=== PATIENT | female | born 1980 | race Native Hawaiian/Other Pacific Islander ===

== ENCOUNTER 2017-07-01 13:38 | Outpatient (CLI) | payer OTHER | END 2017-07-01 14:40 | disposition home or self-care (01) | LOC: MAMMO 13:38 | DX: Z12.31 Encounter for screening mammogram for malignant neoplasm of breast (principal) | CPT/HCPCS: G0202-TC ==

== ENCOUNTER 2018-01-16 13:28 | Emergency (ER) | payer OTHER ==
[~2018-01-16] VITALS: Ht 160 cm; Wt 71.7 kg
[2018-01-16 14:18] LABS: PLATELET COUNT 389 K/uL (152-353)
[2018-01-16 16:50] LABS: POTASSIUM 3.4 mmol/L (3.6-5.2)
[2018-01-16 17:00] VITALS: TEMP 97.8
[2018-01-16 17:50] VITALS: BP 118/68
== END 2018-01-16 17:54 | disposition home or self-care (01) ==
LOC: ED 13:28
PROVIDERS: Emergency Medicine; Specialist
DX: Z72.820 Sleep deprivation (principal); R00.2 Palpitations
CPT/HCPCS: 36415; 80048; 80307; 81000; 82550; 84439; 84443; 84484; 85027; 93005; 96374; 99284

== ENCOUNTER 2018-11-02 13:13 | Outpatient (CLI) | payer OTHER | END 2018-11-02 19:13 | disposition home or self-care (01) | LOC: RAD 13:13 | DX: M25.541 Pain in joints of right hand (principal) ==

== ENCOUNTER 2018-12-08 11:30 | Outpatient (CLI) | payer OTHER | END 2018-12-08 21:09 | disposition home or self-care (01) | LOC: MAMMO 11:30 | DX: Z12.31 Encounter for screening mammogram for malignant neoplasm of breast (principal) ==

== ENCOUNTER 2020-08-18 14:06 | Outpatient (CLI) | payer OTHER | END 2020-08-19 03:41 | disposition home or self-care (01) | LOC: MAMMO 14:06 | DX: Z12.31 Encounter for screening mammogram for malignant neoplasm of breast (principal) ==

== ENCOUNTER 2020-10-11 13:40 | Outpatient (CLI) | payer OTHER | END 2020-10-11 23:56 | disposition home or self-care (01) | LOC: US 13:40 | PROVIDERS: ATTEND Physician Assistant | DX: E04.1 Nontoxic single thyroid nodule (principal) ==

== ENCOUNTER 2020-12-25 08:57 | Outpatient (CLI) | payer OTHER | END 2020-12-25 19:15 | disposition home or self-care (01) | LOC: MAMMO 08:57 | PROVIDERS: ATTEND Physician Assistant | DX: N64.4 Mastodynia (principal) | CPT/HCPCS: G0279 ==

== ENCOUNTER 2020-12-26 14:25 | Outpatient (CLI) | payer OTHER | END 2020-12-26 22:52 | disposition home or self-care (01) | LOC: US 14:25 | PROVIDERS: ATTEND Physician Assistant | DX: N64.4 Mastodynia (principal) ==

== ENCOUNTER 2021-06-05 10:19 | Outpatient (CLI) | payer OTHER | END 2021-06-05 21:34 | disposition home or self-care (01) | LOC: RAD 10:19 | PROVIDERS: ATTEND Nurse Practitioner Family | DX: M25.571 Pain in right ankle and joints of right foot (principal) ==

== ENCOUNTER 2021-10-02 12:45 | Outpatient (CLI) | payer OTHER | END 2021-10-02 20:24 | disposition home or self-care (01) | LOC: MRI 12:45 | PROVIDERS: ATTEND Physician Assistant | DX: M25.511 Pain in right shoulder (principal) ==

== ENCOUNTER 2022-03-15 13:19 | Outpatient (CLI) | payer OTHER | END 2022-03-15 18:57 | disposition home or self-care (01) | LOC: MAMMO 13:19 | PROVIDERS: ATTEND Obstetrics & Gynecology | DX: Z12.31 Encounter for screening mammogram for malignant neoplasm of breast (principal) ==

== ENCOUNTER 2022-07-01 09:33 | Outpatient (CLI) | payer OTHER | END 2022-07-01 19:31 | disposition home or self-care (01) | LOC: RAD 09:33 | PROVIDERS: ATTEND Physician Assistant | DX: M79.641 Pain in right hand (principal) ==

== ENCOUNTER 2022-12-13 10:38 | Outpatient (CLI) | payer OTHER | END 2022-12-13 19:30 | disposition home or self-care (01) | LOC: RAD 10:38 | PROVIDERS: ATTEND Physician Assistant | DX: M79.641 Pain in right hand (principal); M25.531 Pain in right wrist ==

== ENCOUNTER 2023-03-18 12:22 | Outpatient (CLI) | payer OTHER | END 2023-03-18 19:25 | disposition home or self-care (01) | LOC: MAMMO 12:22 | PROVIDERS: ATTEND Physician Assistant | DX: Z12.31 Encounter for screening mammogram for malignant neoplasm of breast (principal) ==

== ENCOUNTER 2023-09-05 09:44 | Outpatient (CLI) | payer OTHER | END 2023-09-05 19:23 | disposition home or self-care (01) | LOC: CT 09:44 | PROVIDERS: ATTEND Physician Assistant | DX: R10.13 Epigastric pain (principal) | CPT/HCPCS: Q9963 ==